=== PATIENT | male | born 1955 | race American Indian/Alaskan Native ===

== ENCOUNTER 2021-04-28 18:03 | Inpatient (IN) | payer MEDICARE ==
--- NOTE | 2021-04-28 19:12 | XRay Report ---
CHEST 1 VIEW 04/28/2021 5:58 PM INDICATION / CLINICAL INFORMATION: Dyspnea. COMPARISON: None available. FINDINGS: SUPPORT DEVICES: None. HEART / MEDIASTINUM: Heart is moderately enlarged. LUNGS / PLEURA: Moderate interstitial pulmonary edema. No significant effusion. No pneumothorax. ADDITIONAL FINDINGS: No significant additional findings. IMPRESSION: 1. Cardiomegaly with pulmonary edema. Signer Name: Sergio Lemons MD Signed: 04/28/2021 7:08 PM Workstation Name: [id number]
[2021-04-28 19:17] LABS: Basophils % (Auto) 0.8 % (0.0-1.8); Eosinophils # (Auto) 0.1 K/mm3 (0.0-0.4); Eosinophils % (Auto) 0.9 % (0.0-4.3); Lymphocytes # (Auto) 1.1 K/mm3 (1.2-5.4); Lymphocytes % (Auto) 17.6 % (13.4-35.0); Mean Corpuscular HGB Conc 31 % (32-34); Mean Corpuscular Volume 90 fl (84-94); Monocytes # (Auto) 0.7 K/mm3 (0.0-0.8); Monocytes % (Auto) 12.1 % (0.0-7.3); Platelet Count 228 K/mm3 (140-440); Red Blood Count 4.13 M/mm3 (3.65-5.03); Red Cell Distribution Width 19.1 % (13.2-15.2)
[2021-04-28 19:28] LABS: Hemoglobin 11.3 gm/dl (11.8-15.2)
[2021-04-28 19:29] LABS: INR 1.14 (0.87-1.13)
[2021-04-28 19:30] LABS: Calcium 8.6 mg/dL (8.4-10.2); Partial Thromboplastin Time 36.5 Sec. (24.2-36.6)
[2021-04-28] MEDS ORDERED: FUROSEMIDE 40 MG/4 ML INJ IV ONE (19:58)
[2021-04-28 20:27] LABS: Chol/HDL Ratio 3.31 %
--- NOTE | 2021-04-28 20:27 | Emergency Department Report ---
ED Shortness of Breath HPI - General Chief Complaint: Dyspnea/Respdistress Stated Complaint: shortness of breath Time Seen by Provider: 04/28/21 18:27 Source: patient Mode of arrival: Ambulatory Limitations: No Limitations - History of Present Illness Initial Comments: Patient is 66 years old male with history of congestive heart failure. Patient presented to the ER complaining of shortness of breath for the last few days. Patient stated that his shortness of breath is worse when he start walking. Patient denied any chest pain, fever or chills. No abdominal pain, nausea or vomiting. MD Complaint: shortness of breath -: days(s) Known History Of: COPD, congestive heart failure - Related Data Allergies Allergy/AdvReac Type Severity Reaction Status Date / Time No Known Allergies Allergy Verified 04/28/21 18:05 ED Review of Systems ROS: Stated complaint: shortness of breath Other details as noted in HPI Comment: All other systems reviewed and negative Constitutional: denies: chills, fever Respiratory: orthopnea, shortness of breath, SOB with exertion, SOB at rest. denies: cough, wheezing Cardiovascular: denies: chest pain, palpitations Gastrointestinal: denies: abdominal pain, nausea, vomiting Musculoskeletal: denies: back pain Neurological: denies: headache, weakness, numbness, paresthesias, confusion ED Past Medical Hx - Past Medical History Previous Medical History?: Yes Hx Congestive Heart Failure: Yes - Surgical History Past Surgical History?: No ED Physical Exam - General Limitations: No Limitations General appearance: alert, in no apparent distress - Head Head exam: Present: atraumatic, normocephalic, normal inspection - Eye Eye exam: Present: normal appearance, PERRL - ENT ENT exam: Present: normal exam, normal orophraynx, mucous membranes moist - Neck Neck exam: Present: normal inspection, full ROM. Absent: tenderness, meningismus - Respiratory Respiratory exam: Present: normal lung sounds bilaterally - Cardiovascular Cardiovascular Exam: Present: regular rate, normal rhythm, normal heart sounds - GI/Abdominal GI/Abdominal exam: Present: soft, normal bowel sounds. Absent: distended, tenderness, guarding, rebound, rigid, mass, bruit, pulsatile mass, hernia - Extremities Exam Extremities exam: Present: normal inspection, full ROM, normal capillary refill. Absent: tenderness - Back Exam Back exam: Present: normal inspection, full ROM. Absent: CVA tenderness (R), CVA tenderness (L) - Neurological Exam Neurological exam: Present: alert, oriented X3, CN II-XII intact - Psychiatric Psychiatric exam: Present: normal mood - Skin Skin exam: Present: warm, intact, normal color ED Course Vital Signs 04/28/21 18:06 Temperature 99.3 F Pulse Rate 108 H Respiratory 16 Rate Blood Pressure 123/74 [Left] O2 Sat by Pulse 98 Oximetry ED Medical Decision Making - Lab Data Result diagrams: 04/28/21 18:36 04/28/21 18:36 - EKG Data -: EKG Interpreted by Me - Radiology Data Radiology results: report reviewed - Medical Decision Making Patient is 66 years old male with history of congestive heart failure. Patient presented to the ER complaining of shortness of breath for the last few days. Patient stated that his shortness of breath is worse when he start walking. Patient denied any chest pain, fever or chills. No abdominal pain, nausea or vomiting. Chest x-ray showed pulmonary edema. Labs reviewed and showed elevated BNP of more than 6000. Creatinine is 3. Troponin is slightly elevated 0.02. Patient received Lasix. I discussed the patient with Dr. Bower, he agreed to admit the patient to medical service for further management. Critical Care Time: Yes Critical care time in (mins) excluding proc time.: 35 Critical care attestation.: If time is entered above; I have spent that time in minutes in the direct care of this critically ill patient, excluding procedure time. ED Disposition Clinical Impression: Acute exacerbation of CHF (congestive heart failure) Disposition: ADMITTED INPATIENT Is pt being admited?: Yes Condition: Stable
--- NOTE | 2021-04-28 22:58 | History and Physical Report ---
History of Present Illness Date of examination: 04/28/21 Date of admission: 04/28/21 Chief complaint: shortness of breath History of present illness: This is 66 years old male patient seen in the ED at bedside. Patient has a past medical history of hypertension and history of congestive heart failure. Patient presented to the ER complaining of shortness of breath for the last few days. Patient stated that his shortness of breath is worse when he start walking. Patient denied any chest pain, fever or chills. No abdominal pain, nausea or vomiting. I reviewed patient medication record, history and vital signs. Chest x-ray was doneit showed cardiomegaly with pulmonary edema. Cardiology is consulted and patient started on diuretics. Echocardiogram orde red Past History Past Medical History: heart failure, hypertension, hyperlipidemia, other (Gout) Past Surgical History: No surgical history Social history: lives with family, smoking, full code. denies: alcohol abuse, prescription drug abuse, IV drug use Family history: hypertension Medications and Allergies Allergies Allergy/AdvReac Type Severity Reaction Status Date / Time No Known Allergies Allergy Verified 04/28/21 18:05 Review of Systems Constitutional: fatigue, weakness Ears, nose, mouth and throat: no epistaxis, no bleeding gums Cardiovascular: chest pain, shortness of breath, dyspnea on exertion, high blood pressure, leg edema Respiratory: shortness of breath Gastrointestinal: no melena, no hematochezia Rectal: no hemorrhoids Integumentary: no bullae, no lesions Neurological: no convulsions Psychiatric: hopelessness Hematologic/Lymphatic: no easy bruising, no easy bleeding, no lymphadenopathy, no lymphedema Allergic/Immunologic: no urticaria Exam - Constitutional Vitals: Temp Pulse Resp BP Pulse Ox 99.3 F 108 H 16 123/74 98 04/28/21 18:06 04/28/21 18:06 04/28/21 18:06 04/28/21 18:06 04/28/21 18:06 General appearance: Present: mild distress, well-nourished - EENT Eyes: Present: PERRL ENT: hearing intact, clear oral mucosa - Neck Neck: Present: supple, normal ROM - Respiratory Respiratory effort: normal Respiratory: bilateral: CTA - Cardiovascular Heart Sounds: Present: S1 & S2. Absent: rub, click - Extremities Extremities: pulses symmetrical, No edema Peripheral Pulses: within normal limits - Abdominal General gastrointestinal: Present: soft, non-tender, non-distended, normal bowel sounds Male genitourinary: Present: normal - Integumentary Integumentary: Present: clear, warm, dry - Musculoskeletal Musculoskeletal: gait normal, strength equal bilaterally - Psychiatric Psychiatric: appropriate mood/affect, intact judgment & insight, cooperative - Neurologic Neurologic: CNII-XII intact, moves all extremities - Allied Health Allied health notes reviewed: nursing HEART Score - HEART Score Troponin: Troponin T 0.027 ng/mL (0.00-0.029) 04/28/21 21:11 Results - Labs CBC & Chem 7: 04/29/21 05:04 04/29/21 05:04 Labs: Abnormal lab results 04/28/21 04/28/21 04/28/21 Range/Units 18:36 18:36 18:36 Hgb 11.3 L (11.8-15.2) gm/dl MCH 27 L (28-32) pg MCHC 31 L (32-34) % RDW 19.1 H (13.2-15.2) % [place] % (Auto) 12.1 H (0.0-7.3) % Lymph # (Auto) 1.1 L (1.2-5.4) K/mm3 PT 15.8 H (12.2-14.9) Sec. INR 1.14 H (0.87-1.13) BUN 29 H (9-20) mg/dL Creatinine 2.0 H (0.8-1.3) mg/dL Troponin T (0.00-0.029) ng/mL NT-Pro-B Natriuret Pep (0-900) pg/mL 04/28/21 04/28/21 Range/Units 18:36 18:45 Hgb (11.8-15.2) gm/dl MCH (28-32) pg MCHC (32-34) % RDW (13.2-15.2) % [place] % (Auto) (0.0-7.3) % Lymph # (Auto) (1.2-5.4) K/mm3 PT (12.2-14.9) Sec. 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 (2) Acute kidney injury Current Visit: Yes Status: Acute Plan to address problem: Monitor kidney function Avoid nephrotoxic drugs Renal ultrasoundfollow-up with results Urine sodium and osmolarity (3) Essential hypertension Current Visit: Yes Status: Acute Plan to address problem: Monitor blood pressure As needed hydrazine (4) Hypokalemia Current Visit: Yes Status: Acute Plan to address problem: Replace potassium Monitor electrolytesreplace as needed Check magnesium (5) Protein calorie malnutrition Current Visit: Yes Status: Acute Plan to address problem: Encourage oral intake Advised on healthy balanced diet -more fruits and vegetables Advised to avoid fried food and concentrated sweetness 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
[2021-04-28] MEDS ORDERED: NALOXONE 0.4 MG/1 ML INJ IV PRN (23:00)
[2021-04-28] MEDS ORDERED: ALPRAZolam 0.25 MG TAB PO PRN (23:00)
[2021-04-28] MEDS ORDERED: ACETAMINOPHEN 325 MG TAB PO PRN (23:00)
[2021-04-28] MEDS ORDERED: NITROGLYCERIN 0.4 MG TAB SUBL SL PRN (23:00)
[2021-04-28] MEDS ORDERED: ALUM-MAG HYDROXIDE-SIMETHICONE 200-200-20MG/5ML ORAL LIQD 30 ML PO PRN (23:00)
[2021-04-28] MEDS ORDERED: ONDANSETRON 4 MG/2 ML INJ IV PRN (23:00)
[2021-04-28] MEDS ORDERED: IBUPROFEN 600 MG TAB PO PRN (23:00)
[2021-04-28] MEDS ORDERED: MORPHINE 2 MG/1 ML INJ IV PRN ×2 (23:00)
[2021-04-28] MEDS ORDERED: oxyCODONE /ACETAMINOPHEN 5-325MG TAB PO PRN (23:00)
[2021-04-28] MEDS ORDERED: hydrALAZINE 20 MG/1 ML INJ IV PRN (23:13)
[2021-04-28] MEDS ORDERED: traMADol 50 MG TAB PO ONE (23:53)
[2021-04-28] MEDS ORDERED: traZODone 50 MG TAB PO ONE (23:53)
[2021-04-28] MEDS ORDERED: carvediloL 3.125 MG TAB PO ONE (23:56)
[2021-04-29] MEDS ORDERED: ALBUTEROL 2.5 MG/3 ML NEBU IH PRN (01:10)
[2021-04-29] MEDS ORDERED: IPRATROPIUM/ALBUTEROL SULFATE 3 ML AMPUL.NEB IH SCH (02:00)
[2021-04-29] MEDS: FUROSEMIDE 40 MG/4 ML INJ IV SCH ×2 (05:23→17:53)
[2021-04-29 06:10] LABS: Hematocrit 34.6 % (35.5-45.6); Hemoglobin 10.6 gm/dl (11.8-15.2); Mean Corpuscular HGB Conc 31 % (32-34); Mean Corpuscular Volume 90 fl (84-94); Platelet Count 215 K/mm3 (140-440); Red Blood Count 3.85 M/mm3 (3.65-5.03)
[2021-04-29] MEDS ORDERED: traZODone 50 MG TAB PO PRN (06:22)
[2021-04-29 06:24] LABS: Albumin 3.1 g/dL (3.9-5); BUN/Creatinine Ratio 13; Blood Urea Nitrogen 25 mg/dL (9-20); Calcium 8.3 mg/dL (8.4-10.2); Hemolysis Index 7
[2021-04-29 06:25] LABS: Alanine Aminotransferase < 5 units/L (7-56)
[2021-04-29 06:27] LABS: Basophils % (Auto) 0.3 % (0.0-1.8); Eosinophils # (Auto) 0.1 K/mm3 (0.0-0.4); Eosinophils % (Auto) 0.9 % (0.0-4.3); Lymphocytes % (Auto) 17.4 % (13.4-35.0); Monocytes # (Auto) 0.9 K/mm3 (0.0-0.8)
[2021-04-29] MEDS ORDERED: POTASSIUM CHLORIDE ER 20 MEQ TAB PO ONE (07:26)
[2021-04-29] MEDS: HEPARIN 5,000 UNIT/1 ML VIAL SUB-Q SCH ×2 (09:58→23:01)
[2021-04-29] MEDS: carvediloL 3.125 MG TAB PO SCH ×2 (09:58→17:54)
[2021-04-29] MEDS: SENNOSIDES 8.6 MG TAB PO SCH ×2 (09:58→23:01)
[2021-04-29] MEDS ORDERED: FAMOTIDINE 20 MG/2 ML INJ IV SCH (10:00)
[2021-04-29] MEDS ORDERED: ASPIRIN 81 MG TAB CHEW PO SCH (10:00)
[2021-04-29] MEDS: IPRATROPIUM/ALBUTEROL SULFATE 3 ML AMPUL.NEB IH SCH ×3 (10:13→20:59)
--- NOTE | 2021-04-29 10:45 | Electrocardiograph Report ---
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
[2021-04-29] MEDS ORDERED: predniSONE 10 MG TAB PO SCH (12:00)
--- NOTE | 2021-04-29 13:30 | Ultrasound Report ---
ULTRASOUND RENAL INDICATION / CLINICAL INFORMATION: [place]. COMPARISON: None available. FINDINGS: RIGHT KIDNEY: Length = 9.2 cm. - Echogenicity: Increased. - Cortical Thickness: Mild thinning. - Hydronephrosis: None. - Cyst / Mass: Mildly complex upper pole cyst measuring 1.7 x 1.7 x 1.6 cm with thin internal septati on. - Stones: None seen. LEFT KIDNEY: Length = 8.9 cm. - Echogenicity: Increased. - Cortical Thickness: Mild thinning. - Hydronephrosis: None. - Cyst / Mass: None. - Stones: None seen. URINARY BLADDER: No significant abnormality. FREE FLUID: None. ADDITIONAL FINDINGS: None. IMPRESSION: 1. Findings suggestive of bilateral medical renal disease. 2. Mildly complex right upper pole cyst, as above. 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 Scribed by: Betty Rodriguez RDMS, RVT Scribed: 04/29/2021 12:24 PM I have reviewed the images, agree with this report, and edited this report as needed. Signer Name: Sergio Lemons MD Signed: 04/29/2021 1:26 PM Workstation Name: [id number]
--- NOTE | 2021-04-29 14:51 | Progress Note ---
Assessment and Plan Assessment and plan: Patient is a 66-year-old man with past medical history of hypertension, congestive heart failure, gout, hyperlipidemia, and tobacco dependence who presented with worsening dyspnea with exertion and was found to have acute on chronic heart failure exacerbation. #Acute heart failure exacerbation -Etiology unknown. Patient endorses being compliant with medications. -Chest x-ray revealing increased interstitial markings consistent with pulmonary edema and moderately enlarged cardiac silhouette. -Pending TTE -Continue telemetry, strict I's and O's, fluid restriction, daily weights, and cardiac diet. -Continue IV Lasix 40 mg twice daily for appropriate diuresis. -Continuing home ASA 81 mg daily, Coreg 3.125 mg twice daily, atorvastatin 40 mg daily, and IV hydralazine 5 mg every 4 hours as needed -continue to monitor #YVON on CKD stage IV -Creatinine 1.9 (baseline unknown) -Avoid nephrotoxic medications and renally dose meds. -Pending renal ultrasound. Continue to monitor. #Hypertension -Currently normotensive -Continue to monitor #Hypokalemia -Potassium 3.1. -Repleted. Continue to monitor. #Possible protein caloric malnutrition #Counseling on dietary intake -BMI 26.7 -Counseled on eating healthy balanced diet with more fruits and vegetables and lean meats, avoiding fried foods and concentrated sweets. Patient expressed understanding -Time: +15 minutes #Advanced care planning -Disease education conducted, care plan discussed, diagnoses discussed, prognosis discussed, and patient acknowledges understanding with care plan -Time: +20 minutes Disposition Plan: Continue medical management Total Time Spent with Patient (Minutes): 45 minutes History Interval history: No acute events overnight. Hospitalist Physical - Constitutional Vitals: Temp Pulse Resp BP Pulse Ox 98.0 F 116 H 18 127/61 96 04/29/21 11:46 04/29/21 11:46 04/29/21 13:53 04/29/21 11:46 04/29/21 13:53 General appearance: Present: mild distress, well-nourished - EENT Eyes: Present: PERRL, EOM intact ENT: hearing intact, clear oral mucosa, poor dentition, edentulous - Neck Neck: Present: supple, normal ROM - Respiratory Respiratory effort: normal Respiratory: bilateral: rales - Cardiovascular Rhythm: regular Heart Sounds: Present: S1 & S2 - Extremities Extremities: no ischemia, pulses intact, pulses symmetrical, No edema, normal temperature, normal color Extremity abnormal: edema (Mild edema to bilateral knees), other (Severe tenderness of left third digit on hand) Peripheral Pulses: within normal limits - Abdominal General gastrointestinal: soft, non-tender, non-distended, normal bowel sounds - Integumentary Integumentary: Present: clear, warm, dry - Psychiatric Psychiatric: appropriate mood/affect, intact judgment & insight, memory intact, cooperative - Neurologic Neurologic: CNII-XII intact, moves all extremities - Allied Health Allied health notes reviewed: nursing HEART Score - HEART Score Troponin: Troponin T 0.027 ng/mL (0.00-0.029) 04/28/21 21:11 Results - Labs CBC & Chem 7: 04/29/21 05:04 04/29/21 05:04 Labs: Laboratory Last Values WBC 6.0 K/mm3 (4.5-11.0) 04/29/21 05:04 RBC 3.85 M/mm3 (3.65-5.03) 04/29/21 05:04 Hgb 10.6 gm/dl (11.8-15.2) L 04/29/21 05:04 Hct 34.6 % (35.5-45.6) L 04/29/21 05:04 MCV 90 fl (84-94) 04/29/21 05:04 MCH 28 pg (28-32) 04/29/21 05:04 MCHC 31 % (32-34) L 04/29/21 05:04 RDW 19.0 % (13.2-15.2) H 04/29/21 05:04 Plt Count 215 K/mm3 (140-440) 04/29/21 05:04 Lymph % (Auto) 17.4 % (13.4-35.0) 04/29/21 05:04 [place] % (Auto) 15.0 % (0.0-7.3) H 04/29/21 05:04 Eos % (Auto) 0.9 % (0.0-4.3) 04/29/21 05:04 Baso % (Auto) 0.3 % (0.0-1.8) 04/29/21 05:04 Lymph # (Auto) 1.0 K/mm3 (1.2-5.4) L 04/29/21 05:04 [place] # (Auto) 0.9 K/mm3 (0.0-0.8) H 04/29/21 05:04 Eos # (Auto) 0.1 K/mm3 (0.0-0.4) 04/29/21 05:04 Baso # (Auto) 0.0 K/mm3 (0.0-0.1) 04/29/21 05:04 Seg Neutrophils % 66.4 % (40.0-70.0) 04/29/21 05:04 Seg Neutrophils # 3.9 K/mm3 (1.8-7.7) 04/29/21 05:04 PT 15.8 Sec. (12.2-14.9) H 04/28/21 18:36 INR 1.14 (0.87-1.13) H 04/28/21 18:36 APTT 36.5 Sec. (24.2-36.6) 04/28/21 18:36 Sodium 142 mmol/L (137-145) 04/29/21 05:04 Potassium 3.1 mmol/L (3.6-5.0) L 04/29/21 05:04 Chloride 102.2 mmol/L (98-107) 04/29/21 05:04 Carbon Dioxide 24 mmol/L (22-30) 04/29/21 05:04 Anion Gap 19 mmol/L 04/29/21 05:04 BUN 25 mg/dL (9-20) H 04/29/21 05:04 Creatinine 1.9 mg/dL (0.8-1.3) H 04/29/21 05:04 Estimated GFR 43 ml/min 04/29/21 05:04 BUN/Creatinine Ratio 13 % 04/29/21 05:04 Glucose 112 mg/dL (75-100) H 04/29/21 05:04 Lactic Acid 1.50 mmol/L (0.7-2.0) 04/28/21 18:36 Calcium 8.3 mg/dL (8.4-10.2) L 04/29/21 05:04 Total Bilirubin 0.90 mg/dL (0.1-1.2) 04/29/21 05:04 AST 11 units/L (5-40) 04/29/21 05:04 ALT < 5 units/L (7-56) L 04/29/21 05:04 Alkaline Phosphatase 114 units/L (35-129) 04/29/21 05:04 Troponin T 0.027 ng/mL (0.00-0.029) 04/28/21 21:11 NT-Pro-B Natriuret Pep 6276 pg/mL (0-900) H 04/28/21 18:45 Total Protein 6.3 g/dL (6.3-8.2) 04/29/21 05:04 Albumin 3.1 g/dL (3.9-5) L 04/29/21 05:04 Albumin/Globulin Ratio 1.0 % 04/29/21 05:04 Triglycerides 82 mg/dL (2-149) 04/28/21 18:36 Cholesterol 149 mg/dL (50-199) 04/28/21 18:36 LDL Cholesterol Direct 88 mg/dL (50-130) 04/28/21 18:36 HDL Cholesterol 45 mg/dL (40-59) 04/28/21 18:36 Cholesterol/HDL Ratio 3.31 % 04/28/21 18:36 Microbiology: Microbiology 04/28/21 18:36 Peripheral/Venous Blood Culture - Preliminary Culture in Progress 04/28/21 18:45 Peripheral/Venous Blood Culture - Preliminary Culture in Progress [place]/IV: Voiding Method Urinal Active Medications - Current Medications Current Medications: Generic Name Dose Route Start Last Admin Trade Name Freq PRN Reason Stop Dose Admin Acetaminophen 650 mg 04/28/21 23:00 Acetaminophen 325 Mg Tab PO Q4H PRN Pain MILD(1-3)/Fever >100.5/VILLELA Al Hydrox/Mg Hydrox/Simethicone 30 ml 04/28/21 23:00 Alum-Mag Hydroxide-Simethicone 698-427-17lb/5ml Oral Liqd 30 Ml PO Q4H PRN Indigestion Albuterol 2.5 mg 04/29/21 01:10 Albuterol 2.5 Mg/3 Ml Nebu IH Q4HRT PRN Shortness Of Breath Albuterol/Ipratropium 1 ampul 04/29/21 08:00 04/29/21 10:14 Ipratropium/Albuterol Sulfate 3 Ml Ampul.Neb IH Not Given BIDRT ALEX Alprazolam 0.125 mg 04/28/21 23:00 Alprazolam 0.25 Mg Tab PO Q8H PRN Agitation Aspirin 81 mg 04/29/21 10:00 04/29/21 09:57 Aspirin 81 Mg Tab Chew PO 81 mg QDAY ALEX Administration Atorvastatin Calcium 40 mg 04/29/21 22:00 Atorvastatin 40 Mg Tab PO QHS ALEX Carvedilol 3.125 mg 04/29/21 08:00 04/29/21 09:58 Carvedilol 3.125 Mg Tab PO 3.125 mg BID@0800,1700 ALEX Administration Famotidine 20 mg 04/29/21 10:00 04/29/21 09:58 Famotidine 20 Mg/2 Ml Inj IV 20 mg QAM ALEX Administration Furosemide 40 mg 04/29/21 06:00 04/29/21 05:23 Furosemide 40 Mg/4 Ml Inj IV 40 mg BID@0600,1800 [facility] Administration Heparin Sodium (Porcine) 5,000 unit 04/29/21 10:00 04/29/21 09:58 Heparin 5,000 Unit/1 Ml Vial SUB-Q 5,000 unit Q12HR [facility] Administration Hydralazine HCl 5 mg 04/28/21 23:13 Hydralazine 20 Mg/1 Ml Inj IV Q4H PRN Hypertension Morphine Sulfate 2 mg 04/28/21 23:00 Morphine 2 Mg/1 Ml Inj IV Q4H PRN Pain, Moderate (4-6) Naloxone HCl 0.1 mg 04/28/21 23:00 Naloxone 0.4 Mg/1 Ml Inj IV Q2MIN PRN Res Rate </= 8 or 02 SAT < 92% Nitroglycerin 0.4 mg 04/28/21 23:00 Nitroglycerin 0.4 Mg Tab Subl SL .Q5MIN PRN Chest Pain Ondansetron HCl 4 mg 04/28/21 23:00 Ondansetron 4 Mg/2 Ml Inj IV Q8H PRN Nausea And Vomiting Oxycodone/Acetaminophen 1 tab 04/28/21 23:00 04/29/21 00:46 Oxycodone /Acetaminophen 5-325mg Tab PO 1 tab Q6H PRN Administration Pain, Moderate (4-6) Prednisone 30 mg 04/29/21 12:00 04/29/21 12:30 Prednisone 10 Mg Tab PO 30 mg QDAY [facility] Administration Senna 8.6 mg 04/29/21 10:00 04/29/21 09:58 Sennosides 8.6 Mg Tab PO 8.6 mg Q12HR ALEX Administration Sodium Chloride 10 ml 04/29/21 10:00 04/29/21 09:59 Sodium Chloride 0.9% 10 Ml Flush Syringe IV 10 ml BID ALEX Administration Sodium Chloride 10 ml 04/28/21 23:00 Sodium Chloride 0.9% 10 Ml Flush Syringe IV PRN PRN LINE FLUSH Trazodone HCl 50 mg 04/29/21 06:22 Trazodone 50 Mg Tab PO QHS PRN Insomnia
[2021-04-30 03:42] VITALS: BP 142/80
[2021-04-30 05:46] LABS: Basophils % (Auto) 0.2 % (0.0-1.8); Hematocrit 35.9 % (35.5-45.6); Lymphocytes # (Auto) 0.7 K/mm3 (1.2-5.4); Lymphocytes % (Auto) 8.7 % (13.4-35.0); Mean Corpuscular HGB Conc 31 % (32-34); Mean Corpuscular Volume 91 fl (84-94); Monocytes # (Auto) 0.7 K/mm3 (0.0-0.8); Monocytes % (Auto) 8.7 % (0.0-7.3); Platelet Count 219 K/mm3 (140-440); Red Blood Count 3.94 M/mm3 (3.65-5.03); Red Cell Distribution Width 18.7 % (13.2-15.2)
[2021-04-30 05:56] LABS: Calcium 9.3 mg/dL (8.4-10.2)
[2021-04-30] MEDS: FUROSEMIDE 40 MG/4 ML INJ IV SCH (06:36)
[2021-04-30] MEDS: IPRATROPIUM/ALBUTEROL SULFATE 3 ML AMPUL.NEB IH SCH (09:31)
--- NOTE | 2021-04-30 12:21 | Discharge Summary ---
Providers - Providers Date of Admission: 04/28/21 21:49 Date of discharge: 04/30/21 Attending physician: BREANNA DAIZ MD 04/29/21 06:29 Consult to Dietitian/Nutrition [CONS] Routine Physician Instructions: Reason For Exam: Reason for Consult: Malnutrition Primary care physician: EMTS Hospitalization Reason for admission: Acute on chronic heart failure exacerbation Condition: Stable Pertinent studies: Reviewed. Procedures: None. Hospital course: Patient is a 66-year-old man with past medical history of hypertension, congestive heart failure, gout, hyperlipidemia, and tobacco dependence who presented with worsening dyspnea with exertion and was found to have acute on chronic heart failure exacerbation. Patient was initiated on goal-directed care with IV diuresis and reinitiation of home medications. Patient left AMA today. Disposition: LEFT AGAINST MEDICAL ADVICE Final Discharge Diagnosis (Prints w/discharge instructions): Acute heart failure exacerbation (etiology unknown), YVON on CKD stage IV (prerenal/vasomotor), hypertension, hypokalemia Time spent for discharge: 20 minutes Core Measure Documentation - Palliative Care Palliative Care/ Comfort Measures: Not Applicable - Core Measures Any of the following diagnoses?: heart failure - VTE Discharge Requirements Deep Vein Thrombosis/Pulmonary Embolism Present on Admission: No Has pt received <5 days of overlap therapy or INR<2.0: No (Not indicated) Anticoagulant overlap therapy prescribed at discharge: No Contraindication No Overlap Therapy order at DC: Not Indicated - Acute AR Discharge Requirements Aspirin at discharge: Yes JANETTE/ARB for LVSD if EF <40%: No Reason for no JANETTE/ARB: Patient refusal (Patient left AMA) Beta cain at discharge: Yes Statin for LDL = or >100 mg/dl on DC: No Reason for no statin on DC: Patient refusal (Patient left AMA) - Heart Failure Discharge Requirements JANETTE/ARB for LVSD if EF <40%: No Reason for no JANETTE/ARB: Patient refusal (Patient left AMA) Beta cain at discharge: Yes - Stroke Discharge Requirements Statin for LDL = or >70 mg/dl on DC: Not Applicable Reason for no statin on DC: Patient Refusal (Patient left AMA) Anticoag for atrial fib/atrial flutter: No Reason for no anticoag for AF/F on DC: Not Indicated Antithrombotic for ischemic stroke: No Reason for no antithrombotic on DC: Not Indicated Exam - Physical Exam Narrative exam: Unable to perform physical exam as patient left AMA. - Constitutional Vitals: Temp Pulse Resp BP Pulse Ox 97.4 F L 85 18 142/80 95 04/30/21 03:06 04/30/21 03:06 04/30/21 03:06 04/30/21 03:06 04/30/21 03:06 Plan Activity: no restrictions Diet: low salt Care Plan Goals: Patient left AMA. Assessment: Patient was admitted for management of acute on chronic heart failure exacerbation that was being medically managed with IV diuresis and initiation of goal-directed therapy. The patient left AMA. Follow up with: PRIMARY CAREMD [Primary Care Provider] - 7 Days Forms: AMA Form
== END 2021-04-30 06:40 | disposition left against medical advice (07) | DRG 292 ==
LOC: ED 18:03 → 4A 21:49
PROVIDERS: ADMIT Hospitalist; ATTEND Student in an Organized Health Care Education/Training Program
DX: I13.0 Hypertensive heart and chronic kidney disease with heart failure and stage 1 through stage 4 chronic kidney disease, or unspecified chronic kidney disease (principal); N17.9 Acute kidney failure, unspecified; E46 Unspecified protein-calorie malnutrition; N18.4 Chronic kidney disease, stage 4 (severe); I50.9 Heart failure, unspecified; Z68.26 Body mass index [BMI] 26.0-26.9, adult; J44.9 Chronic obstructive pulmonary disease, unspecified; E78.5 Hyperlipidemia, unspecified; E87.6 Hypokalemia; Z53.29 Procedure and treatment not carried out because of patient's decision for other reasons; Z82.49 Family history of ischemic heart disease and other diseases of the circulatory system
CPT/HCPCS: 36415; 71045; 76770; 80048; 80053; 80061; 82140; 83735; 83880; 84100; 84484; 85025; 85610; 85730; 87040; 93005; 94640; 99406; G0378; J3490; J1644; J1940; J7512